=== PATIENT | female | born 1955 | race Caucasian/White ===

== ENCOUNTER 2020-08-23 12:49 | Emergency (ER) | payer MEDICARE ==
[~2020-08-23] VITALS: Ht 175.3 cm; Wt 84.2 kg
[2020-08-23] MEDS ORDERED: IBUP-1022 PO (13:03)
[2020-08-23] MEDS ORDERED: ACET-683 PO (13:03)
[2020-08-23] MEDS ORDERED: CYCL-707 PO (13:03)
[2020-08-23] MEDS ORDERED: PRED20TA PO (13:03)
[2020-08-23] MEDS ORDERED: CITA20TA6 PO (13:03)
[2020-08-23 14:01] LABS: BASO % 0.2 % (0.0-1.0); EOS % 0.1 % (0.0-3.0); HEMATOCRIT 44.7 % (36.0-47.0); HEMOGLOBIN 15.3 g/dl (12.0-15.5); LYMPH % 10.4 % (24.0-44.0); MEAN CORPUSCULAR HEMOGLOBIN 32.8 pg (27.0-33.0); MEAN CORPUSCULAR HGB CONC 34.2 g/dl (32.0-36.5); MEAN CORPUSCULAR VOLUME 95.7 fl (80.0-96.0); MONO # 0.2 10^3/uL (0.0-0.8); MONO % 1.8 % (2.0-8.0); PLATELET COUNT, AUTOMATED 331 10^3/uL (150-450); RED BLOOD COUNT 4.67 10^6/uL (4.00-5.40); WHITE BLOOD COUNT 9.2 10^3/uL (4.0-10.0)
[2020-08-23] MEDS ORDERED: PERCOCET 5MG/325MG TAB PO ONE (14:10)
[2020-08-23 14:27] LABS: ERYTHROCYTE SEDIMENTATION RATE 2 mm/hr (0-30)
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
--- NOTE | 2020-08-23 15:21 | REP ---
INDICATION: hip pain/hip replacement. COMPARISON: None TECHNIQUE: Standard helical technique using 3 mm increments and reconstructed in both sagittal and coronal planes. FINDINGS: There is no acute fracture, dislocation, or subluxation. The femoral and acetabular components of the prosthetic device appear well seated and well approximated. IMPRESSION: No abnormality is noted <Electronically signed by Ector Brandt > 08/23/20 [id number]
[2020-08-23] MEDS ORDERED: LIDO5DIS41 TOP (15:46)
[2020-08-23] MEDS ORDERED: PERC5TAB12 PO (15:47)
[2020-08-23] MEDS ORDERED: METH-1165 PO (15:55)
[2020-08-23] MEDS ORDERED: LIDOCAINE 5% (LIDODERM) PATCH TD ONE (16:00)
[2020-08-23 16:10] VITALS: BP 132/78
[2020-08-23] MEDS ORDERED: **NOTE PATIENT COMMENT** MISC XX SCH (21:00)
== END 2020-08-23 16:30 | disposition home or self-care (01) ==
LOC: M ED 12:49 → EDSEX 12:49 → M ED 16:30
DX: S76.012A Strain of muscle, fascia and tendon of left hip, initial encounter (principal); M79.605 Pain in left leg; X58.XXXA Exposure to other specified factors, initial encounter; Y92.9 Unspecified place or not applicable; Y93.9 Activity, unspecified; Y99.9 Unspecified external cause status; M54.32 Sciatica, left side; F33.9 Major depressive disorder, recurrent, unspecified; F41.9 Anxiety disorder, unspecified; Z79.899 Other long term (current) drug therapy